=== PATIENT | female | born 1990 | race Caucasian/White ===

== ENCOUNTER 2019-06-27 18:33 | Emergency (ER) | payer MEDICAID, OTHER ==
[~2019-06-27] VITALS: Ht 175.3 cm; Wt 62.4 kg
[2019-06-27] MEDS ORDERED: DEXAMETHASONE 4 MG TABLET ONE (18:58)
[2019-06-27] MEDS ORDERED: DEXAMETHASONE 4 MG TABLET PO ONE (19:00)
[2019-06-27] MEDS ORDERED: MECLIZINE CHEWABLE 25 MG TAB PO ONE (19:30)
[2019-06-27] MEDS ORDERED: ONDANSETRON ODT 4 MG PO ONE (19:30)
[2019-06-27 19:33] LABS: MEAN CORPUSCULAR HEMOGLOBIN 32.9 pg (27.0-34.8); MEAN CORPUSCULAR HGB CONC 33.8 g/dL (32.4-35.8); MEAN CORPUSCULAR VOLUME 97.6 fL (80-100); PLATELET COUNT 131 x10^3/uL (130-400); RED BLOOD COUNT 4.71 x10^6/uL (3.82-5.3); RED CELL DISTRIBUTION WIDTH 12.9 % (9.6-15.2)
[2019-06-27 19:38] LABS: RAPID INFLUENZA A Negative (Negative); RAPID INFLUENZA B Negative (Negative)
[2019-06-27 19:41] LABS: ALBUMIN 3.7 g/dL (3.4-5.0); ANION GAP 5 mmol/L (5-15); CALCIUM 8.6 mg/dL (8.5-10.1); CHLORIDE 107 mmol/L (98-107); CREATININE 0.77 mg/dL (0.55-1.02)
[2019-06-27] MEDS ORDERED: ONDANSETRON ODT 4 MG ONE (19:52)
[2019-06-27] MEDS ORDERED: MECLIZINE CHEWABLE 25 MG TAB ONE (19:53)
[2019-06-27 19:54] LABS: MD YES
[2019-06-27 19:58] LABS: BAND#(MANUAL) 0.22 x10^3/uL; BANDS%(MANUAL) 8 % (0-7); LYMPH#(MANUAL) 0.57 x10^3/uL (1-3.4); LYMPHS% (MANUAL) 21 % (22-44); MONOS#(MANUAL) 0.11 x10^3/uL (0.3-2.7); MONOS% (MANUAL) 4 % (2-9); REACTIVE LYMPHS # (MANUAL) 0.03 x10^3/uL (0-0); REACTIVE LYMPHS % (MANUAL) 1 % (0-0); SEG#(MANUAL) 1.78 x10^3/uL (1.8-6.8); SEGS% (MANUAL) 66 % (42-75)
[2019-06-27 19:59] LABS: <PLATELET ESTIMATE> ADEQUATE; <PLT MORPHOLOGY> NORMAL PLT MORPH; <RBC MORPHOLOGY> NORMAL
[2019-06-27 20:20] VITALS: BP 101/77
--- NOTE | 2019-06-27 20:23 | NUR ---
RN to bedside, patient resting on her side, occasional cough, answers questions clearly and concisely. Administered medications per provider. Orthostatics completed, laying, sitting and standing. Patients blood pressure stable and constant. Informed provider. Awaiting disposition.
== END 2019-06-27 21:03 ==
LOC: ED 20:57
DX: B34.9 Viral infection, unspecified (principal); R42 Dizziness and giddiness; F17.200 Nicotine dependence, unspecified, uncomplicated; M79.10 Myalgia, unspecified site; R11.0 Nausea; R51 Headache
CPT/HCPCS: 36415; 71046; 80048; 82040; 84703; 85025; 87081; 87400; 87880; 93005; 99285; Q0162